=== PATIENT | female | born 1995 | race Caucasian/White ===

== ENCOUNTER → 2019-07-19 | Outpatient (CLI) | payer OTHER | LOC: COL.PUL 11:03 | DX: R07.89 Other chest pain (principal) ==

== ENCOUNTER → 2019-08-01 | Outpatient (CLI) | payer OTHER | LOC: COL.PUL 09:39 | DX: R06.02 Shortness of breath (principal); R07.89 Other chest pain | CPT/HCPCS: J7674 ==